=== PATIENT | male | born 1970 | race Caucasian/White ===

== ENCOUNTER 2016-06-06 15:27 | Emergency (ER) | payer OTHER ==
--- NOTE | ~2016-06-06 | CT2 ---
[facility] A Service of [facility] & [facility] RADIOLOGY TEXT RESULTS PATIENT: SALLIE TAYLOR LOCATION: SED : 68 UNIT #: [id number] AGE: [address]: Eduardo Wheatley MD SEX: M ORDER DR: [id number] [address] [address] [id number] E MR#: [id number] Acc #: [id number] NAME: SALLIE TAYLOR : 1970 SEX: M STUDY DATE/TIME: 06/06/2016 17:18 UNIT: SED ROOM: STUDY DESCRIPTION: CT Abd and Pelv W Cont Attending Physician: Eduardo Wheatley M.D. Referring Physician: Eduardo Wheatley M.D. Ordering Physician: Eduardo Wheatley M.D. Primary Care Physician: No Primary Care Physician MEDICAL IMAGING REPORT This report is preliminary unless electronic signature is present. EXAM CT abdomen and pelvis 06/06/2016 HISTORY Pain. Abdomen pain midabdomen pain radiating to right abdomen x1 week. Smoker, hypertension. Heart stents. TECHNIQUE This CT exam was performed with one or more of the following radiation dose reduction techniques: automatic control, adjustment of mA and/or kV according to patient size, and iterative reconstruction. FINDINGS CT abdomen and pelvis performed with intravenous administration 100 mL Isovue-370. Comparison to noncontrast enhanced examination 02/14/2016. Minimal linear scarring or atelectasis at the left lung base. Inferior heart notable for coronary arterial calcifications. Liver diffusely low in density. Nonspecific appearance on contrast-enhanced examination. This may be a reflection of some degree of underlying fatty infiltration. There are 2 areas of focal hypodensity in the hepatic parenchyma along the gallbladder fossa one more anteriorly measuring about 1 cm in diameter and one more posteriorly measuring about 1.2 cm in diameter. They are indeterminate in appearance. They could represent small areas of more localized fatty infiltration. They could represent small subcapsular cysts. They are best further evaluated with multiphase contrast-enhanced MRI or CT. In absence of risk factors benign etiology favored. Gallbladder, biliary tree, spleen, adrenal glands unremarkable. Pancreas unremarkable. No morphologic findings of pancreatitis. Correlate with clinical and laboratory data. The adrenal glands are unremarkable. Bilateral kidneys remarkable. No hydronephrosis or nephrolithiasis. The bilateral ureters are unremarkable. CT PELVIS: No inguinal adenopathy. Urinary bladder unremarkable. [facility] A Service of [facility] RADIOLOGY TEXT RESULTS PATIENT: SALLIE TAYLOR LOCATION: SED : 68 UNIT #: [id number] AGE: [address]: Eduardo Wheatley MD SEX: M ORDER DR: Prostatic calcifications. No pelvic or retroperitoneal adenopathy. Small subcentimeter lymph nodes unchanged from 2013. The distal esophagus, stomach, small bowel, appendix, colon are unremarkable. Scattered atherosclerotic arterial calcifications. No aneurysm. Bony structures. IMPRESSION 1. No clearly acute abnormality is seen in the abdomen or pelvis. Cause for the patient's stated symptoms unclear. The gallbladder is unremarkable. The kidneys and appendix are normal in appearance. Remainder of the alimentary canal unremarkable. No morphologic findings of pancreatitis. Correlate with laboratory data and clinical status. 2. Probable mild diffuse fatty infiltration of liver. 3. 2 focal areas of hypodensity in the subcapsular parenchyma of the gallbladder fossa one measuring 1 cm and one measuring 1.2 cm. Indeterminate in appearance. They may represent small cysts. Best further evaluated with multiphase contrast-enhanced CT or MRI. 4. Scattered atherosclerotic arterial calcifications. No aneurysm. Dictated by... Amando Crane M.D. THIS IS AN ELECTRONICALLY VERIFIED REPORT Amando Crane M.D. at 06/09/2016 5:54 PM HARRISON/gabriela TD: 06/07/2016 02:42 JOB #: [id number] MEDICAL IMAGING REPORT Page 1 of 1
--- NOTE | ~2016-06-06 | US67 ---
[facility] A Service of [facility] RADIOLOGY TEXT RESULTS PATIENT: SALLIE TAYLOR LOCATION: SED : 68 UNIT #: [id number] AGE: [address]: Eduardo Wheatley MD SEX: M ORDER DR: [id number] [place] [address] [id number] E MR#: [id number] Acc #: [id number] NAME: SALLIE TAYLOR : 1970 SEX: M STUDY DATE/TIME: 06/06/2016 15:36 UNIT: SED ROOM: STUDY DESCRIPTION: US Gallbladder Attending Physician: Eduardo Wheatley M.D. Referring Physician: Eduardo Wheatley M.D. Ordering Physician: Eduardo Wheatley M.D. MEDICAL IMAGING REPORT This report is preliminary unless electronic signature is present. EXAM Right upper quadrant abdominal ultrasound. DATE OF EXAM 06/06/2016 INDICATION Right upper quadrant abdominal pain and nausea for the past week. PROCEDURE Teresa-scale and Doppler imaging right upper quadrant of the abdomen. COMPARISON None. FINDINGS Majority of the pancreas is obscured by bowel gas. Liver has increased echotexture and measures 17.4 cm. Common duct is obscured by bowel gas. Unremarkable gallbladder. Right kidney measures 12.9 cm. IMPRESSION 1. Increased liver echotexture suggesting steatosis. 2. Common duct obscured by bowel gas. Otherwise, negative right upper quadrant ultrasound. Dictated by... Ben Mills M.D. THIS IS AN ELECTRONICALLY VERIFIED REPORT Ben Mills M.D. at 06/11/2016 7:06 AM EED/jt [facility] A Service [facility] RADIOLOGY TEXT RESULTS PATIENT: SALLIE TAYLOR LOCATION: SED : [birth year] UNIT #: [id number] AGE: [address]: Eduardo Wheatley MD SEX: M ORDER DR: TD: 06/06/2016 19:13 JOB #: [id number] MEDICAL IMAGING REPORT Page 1 of 1
[2016-06-06 15:18] LABS: BASOPHIL# 0.1 X10e3 (0-0.3); BASOPHIL% 1.1 % (0-2.5); EOSINOPHIL# 0.2 X10e3 (0-0.7); EOSINOPHIL% 1.4 % (0.0-7.0); HEMATOCRIT 48.3 % (38.0-50.0); HEMOGLOBIN 16.5 gm/dL (13.0-16.0); LYMPHOCYTE# 3.7 X10e3 (1.0-3.5); LYMPHOCYTE% 29.4 % (17.0-45.0); MEAN CORPUSCULAR HEMOGLOBIN 30.7 PG (28-34); MEAN CORPUSCULAR HGB CONC 34.1 g/dL (30-36); MEAN PLATELET VOLUME 8.4 FL (6.5-11.5); MONOCYTE% 8.2 % (3.0-12.0); NEUTROPHIL# 7.6 X10e3 (1.5-7.1); NEUTROPHIL% 59.9 % (40-75); PLATELET COUNT 200 X10e3 (140-420); RED BLOOD COUNT 5.37 X10e (3.90-5.60); RED CELL DISTRIBUTION WIDTH 13.3 % (11.0-15.5); WHITE BLOOD COUNT 12.7 X10e3 (4.0-10.5)
[2016-06-06 15:19] LABS: DIFF IND NO
[~2016-06-06 15:27] MED LIST: BAYER ASPIRIN325 M1 PO; BLOOD THINNER; BP MED; EFFIENT5 MG PO; NAMENDA10 MG
[2016-06-06 15:35] LABS: ALBUMIN SERUM 4.3 g/dL (3.5-5.0); BILIRUBIN, DIRECT 0.1 mg/dL (0.0-0.2); BILIRUBIN,INDIRECT 0.6 mg/dL (0.0-0.9); BILIRUBIN,TOTAL 0.7 mg/dL (0.2-2.0); BUN/CREATININE RATIO 14.16; CALCIUM SERUM 9.3 mg/dL (8.4-10.2); CREATININE SERUM 1.2 mg/dL (0.6-1.4); GLOM FILT RATE Estimated 72.1 mL/min (>60); POTASSIUM 4.1 mmol/L (3.5-5.1); PROTEIN TOTAL SERUM 7.5 g/dL (6.0-8.3)
== END 2016-06-06 18:03 | disposition home or self-care (01) ==
LOC: SED 15:27
PROVIDERS: Emergency Medicine
DX: R10.13 Epigastric pain (principal); Z79.82 Long term (current) use of aspirin
CPT/HCPCS: 36415; 74177; 76705; 80048; 80076; 82150; 83690; 85025; 96374; 99284; J1885; Q9967